=== PATIENT | female | born 1955 | race Caucasian/White ===

== ENCOUNTER 2024-07-15 08:35 | Outpatient (CLI) | payer MEDICARE ==
[~2024-07-15] VITALS: Ht 172.7 cm; Wt 65.8 kg
[~2024-07-15 08:35] MED LIST: ALBU18HF2 IH; ALOE1CAP; BENZ-111 PO; DULO-31 PO; FERR324T3 PO; GUAI-1078 PO; LACT1CAP26 PO; LOP25T PO; MULT-1085 PO; NOR5T PO; PRED10TA23 PO; PREG100C PO; VITC500T PO
[2024-07-15] MEDS: albuterol 2.5 MG/3 ML nebule NEB ONE (09:18)
[2024-07-15 09:21] VITALS: PULSE 88; RESP 18; O2SAT 97
[2024-07-15 09:33] VITALS: PULSE 83; RESP 18
== END 2024-07-15 23:59 | disposition home or self-care (01) ==
LOC: RT 08:35
PROVIDERS: ATTEND Hospitalist
DX: J43.8 Other emphysema (principal)
CPT/HCPCS: 94060; 94760

== ENCOUNTER 2024-12-31 10:44 | Emergency (ER) | payer MEDICARE ==
[~2024-12-31] VITALS: Ht 172.7 cm; Wt 69.7 kg
[~2024-12-31 10:44] MED LIST changes: -PRED10TA23 PO
--- NOTE | 2024-12-31 11:37 | Physician Documentation ---
History of Present Illness ~ Chief Complaint: Shortness of Breath Stated Complaint: COLD SYMPTOMS Time Seen by MD: 13:10 Primary Medical Doctor: NONE Source: patient Mode of Arrival: POV Exam Limitations: no limitations HPI This is a 69-year-old female with a history of emphysema who presents with four days of progressively worsening cough and shortness of breath, patient reports feeling of chest congestion though reports unable to cough anything up. Patient reports no fever though does report intermittent chills. Patient reports no chest pain. Medication Reconciliation Allergies: Coded Allergies: dill oil (Unverified Allergy, Severe, anaphlaxis, 12/31/24) per pt tomato (Unverified Allergy, Severe, anaphalxis, 12/31/24) per pt report codeine (Verified Allergy, Unknown, 12/31/24) morphine (Verified Allergy, Unknown, 12/31/24) Scheduled Albuterol Sulfate (Ventolin Hfa), 2 PUFFS IH 5XD Amlodipine Besylate (Amlodipine Besylate), 10 MG PO DAILY Ascorbic Acid* (Vitamin C*), 500 MG PO DAILY Duloxetine Hcl* (Cymbalta*), 60 MG PO BID, (Reported) Ferrous Gluconate (Ferrous Gluconate), 324 MG PO DAILY Guaifenesin (Mucus Relief), 1 TAB PO BID, (Reported) Lactobacillus Rhamnosus (Culturelle), 1 CAP PO BID Metoprolol Tartrate* (Lopressor tablet*), 25 MG PO BID Multivitamin (Multi Vitamin Daily), 1 TAB PO DAILY, (Reported) Pregabalin (Lyrica), 1 CAP PO Q12H, (Reported) Scheduled PRN Benzonatate (Benzonatate), 100 MG PO Q8H PRN for cough Miscellaneous Medications Aloe Vera (Aloe Vera), (Reported) Review of Systems All Other Systems at this time: Reviewed and Negative ROS As stated above in the HPI, otherwise all systems are reviewed and negative. Physical Exam Vital Signs: RN Vital Signs have been reviewed: Yes, Heart Rate: 100, Respiratory Rate: 16, BP: 180/100, Pulse Oximetry: 100, Weight: 69.700 Oxygen Flow Rate: 0 Physical Exam VITALS: Reviewed and as above. GENERAL: Alert, nontoxic appearing, no apparent distress. HEENT: RESPIRATORY: No increased work of breathing, no respiratory distress, speaking in full clear sentences CHEST: CV: BACK: GI: MUSCULOSKELETAL: SKIN: NEURO: PSYCH: General Appearance: alert, WD/WN, no apparent distress Neck: normal inspection EENT: normal ENT inspection Respiratory: no respiratory distress Chest: no accessory muscle use Cardiovascular: normal peripheral pulses Gastrointestinal: normal palpation Extremities: normal inspection Skin: normal color Neurologic: oriented x4 Psychiatric: appropriate Lymphatic: no adenopathy Progress Results/Orders Results/Orders Orders - SIVAKUMAR MERCADO MD Chest,Two Views (12/31/24 11:26) Culture Blood (12/31/24 11:26) Saline Lock (12/31/24 11:26) Oxygen (12/31/24 11:26) Completed Orders - SIVAKUMAR MERCADO MD Chest,Two Views (12/31/24 11:26) Cbc/Diff (12/31/24 11:26) BMP (12/31/24 11:26) PBNP (12/31/24 11:26) Lacticsepsis (12/31/24 11:26) Electrocardiogram (12/31/24 13:39) Hs Troponin I W Calculations (12/31/24 13:39) Vital Signs 12/31/24 12/31/24 12/31/24 11:23 12:31 13:56 Pulse 100 94 Resp 16 20 B/P (MAP) 180/100 180/90 (120) Pulse Ox 100 95 O2 Flow Rate 0 3.0 Laboratory Tests Test 12/31/24 11:37 12/31/24 13:45 White Blood Count 5.1 Red Blood Count 5.64 H Hemoglobin 15.1 Hematocrit 44.7 Mean Corpuscular Volume 79.2 Mean Corpuscular Hemoglobin 26.8 L Mean Corpuscular Hemoglobin Concent 33.8 Red Cell Distribution Width 14.4 Platelet Count 284 Mean Platelet Volume 7.2 L Neutrophils (%) (Auto) 55.6 Lymphocytes (%) (Auto) 27.5 Monocytes (%) (Auto) 7.6 Eosinophils (%) (Auto) 8.6 H Basophils (%) (Auto) 0.7 Neutrophils # (Auto) 2.9 Lymphocytes # (Auto) 1.4 Monocytes # (Auto) 0.4 Eosinophils # (Auto) 0.4 Basophils # (Auto) 0.0 CBC Comment Sodium Level 140 Potassium Level 4.1 Chloride Level 105 Carbon Dioxide Level 27.2 Anion Gap 8 Blood Urea Nitrogen 27 H Creatinine 0.99 H Estimated GFR/1.73 m2 56 BUN/Creatinine Ratio 27.3 H Glucose Level 128 H Lactic Acid Level 1.9 Calcium Level 9.5 Pro-B-Type Natriuretic Peptide 54 Albumin 4.0 Chemistry Comments Troponin I High Sensitivity 5 Microbiology Date/Time Source Procedure Growth Status 12/31/24 11:37 Blood Arm Right Blood Culture - Preliminary NEGATIVE (LESS THAN 24 HOURS) Resulted EKG/XRAY/CT/US/VASC/MRI EKG : Intepreting Monitor?: Yes Indication: shortness of breath EKG: NSR EKG Blocks: none [place]: normal Hypertrophy: none Additional Comment EKG (as interpreted by me) Time obtained: 1346 Time interpreted by me: 1347 Rate: 98 Rhythm: NSR [place]: Normal Intervals: Normal ST waves: Unremarkable Interpretation: NSR Chest X-Ray : Interpreted By: self Views: 1 VIEW Lungs: normal Mediastinum: normal Ribs/Bones: normal Abdomen: normal Impression: no acute disease Medical Decision Making Findings MSE performed in triage and patient returned to ED lobby by nursing staff to await available ED room Additional Infomation Ms. Jacobo is a 69 y/o female who presents with c/o SOB. While here in the ED/, she remained hemodynamically normal with ABC's intact and in NAD. She is afebrile and nontoxic. I reviewed her EKG and it shows NSR and is without signs of acute myocardial injury or ischemia. TnI normal. Lytes are unremarkable. I reviewed her CXR and there are no radiographic signs of an acute cardiopulmonary process. No leukocytosis. No new oxygen requirement. I have low clinical suspicion for an acute PE. Her s/s appear most consistent with a URI vs COPD exacerbation (though she doesn't have much wheezing on my exam). Will treat with a single dose of Dexamethasone along with bronchodilator therapy PRN. She was given follow-up and return instructions. She voiced understanding and agreement with d/c instructions. Departure Disposition: HOME / SELF CARE / HOMELESS Impression: Primary Impression: Chronic obstructive pulmonary disease Condition: Improved Discharge Instructions: Upper Respiratory Infection, Adult Referrals: NO PRIMARY CARE PROVIDER (PCP) Prescriptions albuterol inhaler (Pro-Air Inhaler) 8.5 Gm Inhaler 2 PUFFS INH Q4HPRN PRN for wheezing for 30 Days, #18 GM Prov: SIVAKUMAR MERCADO MD 12/31/24 Education Educated: Patient Educated regarding: diagnosis, treatment Signature Scribe Signature: N/A Attestation: N/A FLACA ROGERS Dec 31, 2024 11:37 SIVAKUMAR MERCADO MD Dec 31, 2024 14:34
[2024-12-31 11:54] LABS: MEAN PLATELET VOLUME 7.2 FL (7.4-10.4); RED CELL DISTRIBUTION WIDTH 14.4 % (11.5-14.5)
[2024-12-31 12:12] LABS: CREATININE 0.99 MG/DL (0.40-0.90); PRO BRAIN NATRIURETIC PEPTIDE 54 PG/ML (0-125); TOTAL CARBON DIOXIDE 27.2 MMOL/L (24-32); eCRCL 54 ML/MIN; eGFR 56 ML/MIN
--- NOTE | 2024-12-31 12:20 | RADIOLOGY REPORT ---
DI CHEST,TWO VIEWS, HISTORY: COUGH COMPARISON: CT CT CHEST W/ IV CONTRAST on DOS: 06/23/24, DI CHEST,SINGLE VIEW on DOS: 06/23/[address] CHEST W/ IV CONTRAST on DOS: 06/23/24, DI CHEST,SINGLE VIEW on DOS: 06/23/24 TECHNICAL DATA: 2 view of the chest was obtained. FINDINGS: Lines and tubes: None Cardiomediastinal silhouette: normal Pulmonary vasculature: normal Lung expansion: normal Lung airspace: normal Lung interstitium: normal Pleura: normal Pneumothorax: no Bones: Unremarkable Other: no IMPRESSION: No acute intrathoracic abnormality.
--- NOTE | 2024-12-31 13:48 | ELECTROCARDIOGRAPH REPORT ---
[facility] Test Date: 2024-12-31 Test Time: 13:46:21 Pat Name: JERICHO DOHERTY Department: [facility] Patient ID: [id number] Room: Gender: F Guest Experience Specialist: : [id number] Requested By: SIVAKUMAR MERCADO Order Number: [id number] Reading MD: Measurements Intervals [place] Rate: 98 P: 71 GA: 184 QRS: 76 QRSD: 73 T: 61 QT: 337 QTc: 431 Interpretive Statements Sinus rhythm Abnormal R-wave progression, early transition Baseline wander in lead(s) V4 Please click the below link to view image of tracing.
[2024-12-31] MEDS ORDERED: ALBU8HFA INH (14:42)
[2024-12-31 14:54] VITALS: BP 154/93
[2024-12-31] MEDS: albuterol 2.5 MG/3 ML nebule NEB ONE (15:00)
[2024-12-31 15:02] VITALS: PULSE 92; RESP 20; O2SAT 93; O2SAT 94
== END 2024-12-31 15:18 | disposition home or self-care (01) ==
LOC: ER 10:45
DX: J44.9 Chronic obstructive pulmonary disease, unspecified (principal); Z88.5 Allergy status to narcotic agent; Z91.018 Allergy to other foods; Z79.899 Other long term (current) drug therapy
CPT/HCPCS: 36415; 71046; 80048; 83605; 83880; 84484; 85025; 87040; 93005; 94640; 94760; 99285